=== PATIENT | female | born 1985 | race African-American/Black ===

== ENCOUNTER 2019-11-16 11:28 | Emergency (ER) | payer MEDICAID, OTHER ==
[~2019-11-16] VITALS: Ht 162.6 cm; Wt 87.0 kg
[2019-11-16 12:18] VITALS: BP 144/92
== END 2019-11-16 16:43 | disposition left against medical advice (07) ==
LOC: ER 11:28
DX: Z53.21 Procedure and treatment not carried out due to patient leaving prior to being seen by health care provider (principal)